=== PATIENT | female | born 1940 | race Caucasian/White ===

== ENCOUNTER 2021-09-02 05:55 | Day surgery (SDC) | payer MEDICARE ==
[~2021-09-02 05:55] MED LIST: DEXAMETHASONE SOD PHOSPHATE 4 MG/ML 1 ML VIAL IV ONE; HYDROmorphone 0.5 MG/0.5 ML SYRINGE IVP PRN; LACTATED RINGERS 1,000 ML IV SCH; LIDOCAINE 1% (10MG/ML) FOR IV START INTRADERMA PRN; MIDAZOLAM 2 MG/2 ML VIAL IV PRN; ONDANSETRON 4 MG/2 ML VIAL IVP ONE
--- NOTE | 2021-09-02 06:30 | P.GSHP ---
History of Present Illness H&P Date: 09/02/21 Chief Complaint: Left flank pain The patient is a 80-year-old white female with a history of urolithiasis. She presented last month with a three-day history of left flank pain. Computed tomography scan showed a 10 x 17 mm left renal pelvic calculus. There was also evidence of left hydroureter. A UTI was suspected, and she thus underwent left ureteral stent insertion. The urine culture grew greater than 100,000 alpha hemolytic strep, as well as a lesser number of coagulase-negative staphylococcus. She now comes for ureteroscopic removal of the calculus. She is currently taking Bactrim DS. - Constitutional Constitutional: Denies chills, Denies fever - Gastrointestinal Gastrointestinal: Denies nausea, Denies vomiting - Genitourinary (Female) Genitourinary: Reports flank pain, Reports kidney stones, Denies dysuria, Denies hematuria Past Medical History Past Medical History: Rheumatoid Arthritis (RA) Additional Past Medical History / Comment(s): repeated kidney stones. x 4-5. frequent urinary infections. History of Any Multi-Drug Resistant Organisms: None Reported Additional Past Surgical History / Comment(s): broke rt femur 2014 mark and plate placed. Past Anesthesia/Blood Transfusion Reactions: No Reported Reaction Smoking Status: Current some day smoker, Light tobacco smoker - Past Family History Father Additional Family Medical History / Comment(s): kidney stones Mother Family Medical History: Cancer Additional Family Medical History / Comment(s): leukemia Medications and Allergies Home Medications Medication Instructions Recorded Confirmed Type Sulfamethox-Tmp 800-160Mg [Bactrim 1 tab PO HS 08/31/21 08/31/21 History DS 800-160 mg] Allergies Allergy/AdvReac Type Severity Reaction Status Date / Time Penicillins Allergy Intermediate Rash/Hives Verified 08/31/21 13:57 Surgical - Exam - General well developed, well nourished, no distress - Neck no masses, trachea midline - Abdomen Abdomen: soft, non tender, no guarding, no rigid, no rebound - Genitourinary normal external genitalia - Psychiatric oriented to time, oriented to person, oriented to place, speech is normal, memory intact Results - Imaging Abdominal x-ray: image reviewed CT scan - abdomen: report reviewed, image reviewed Assessment and Plan (1) Calculus of kidney Current Visit: Yes Status: Acute Code(s): N20.0 - CALCULUS OF KIDNEY SNOMED Code(s): 52582384 Plan: Cystoscopy, left ureteral stent removal, left ureteroscopy with holmium laser lithotripsy and possible stone basketing. The procedure then reviewed in detail with the patient. She has been made aware of potential risks, which include anesthesia, bleeding, infection, and ureteral injury. Given the stone burden, she is aware of the possible need to replace the stent and perform a secondary procedure.
[2021-09-02] MEDS ORDERED: ROCURONIUM 10 MG/ML (5 ML VIAL) IV ONE (07:27)
[2021-09-02] MEDS ORDERED: PHENYLEPHRINE-0.9% NACL SYG 1,000 MCG/10 ML SYRINGE ONE (07:27)
[2021-09-02] MEDS ORDERED: LIDOCAINE 2% INJ 20 MG/ML (2 ML VIAL) ONE (07:27)
[2021-09-02] MEDS ORDERED: MIDAZOLAM 2 MG/2 ML VIAL ONE (07:27)
[2021-09-02] MEDS ORDERED: SUCCINYLCHOLINE CHLORIDE 100 MG/5 ML SYR IV ONE (07:27)
[2021-09-02] MEDS ORDERED: fentaNYL (PF) 50 MCG/ML 2 ML AMP ONE (07:27)
[2021-09-02] MEDS ORDERED: PROPOFOL 10 MG/ML 20 ML VIAL IV ONE (07:27)
--- NOTE | 2021-09-02 07:51 | XR ---
EXAMINATION TYPE: XR KUB DATE OF EXAM: 09/02/2021 COMPARISON: NONE HISTORY: Preop TECHNIQUE: One view abdominal series FINDINGS: The osseous structures are intact. The bowel gas pattern is nonspecific. Double-J ureteral stent not ed in the left. Large left renal calculus measuring 1.8 cm. Surgical clips in the gallbladder fossa with diffuse osteopenia, degenerative changes spine and bilat eral hip arthropathy. Postsurgical change right hip. IMPRESSION: 1. 1.8 cm left renal calculus.
[2021-09-02] MEDS ORDERED: LACTATED RINGERS 1,000 ML IV ONE (08:44)
--- NOTE | 2021-09-02 09:56 | FL ---
EXAMINATION TYPE: FL guidance operating room DATE OF EXAM: 09/02/2021 HISTORY: Fluoroscopy time 22 seconds of fluoroscopy provided. IMPRESSION: 1. Fluoroscopy time.
[2021-09-02 10:19] VITALS: TEMP 96.8
--- NOTE | 2021-09-02 10:23 | P.OP ---
Date of Procedure: 09/02/21 Preoperative Diagnosis: Left Renal Calculus Postoperative Diagnosis: Same Procedure(s) Performed: Cystoscopy, left ureteroscopy with Holmium laser lithotripsy and stone basketing, left ureteral stent change Anesthesia: ELIZABETHA Surgeon: Harinder Xavier Estimated Blood Loss (ml): 10 IV fluids (ml): 1,000 Pathology: other Condition: stable Disposition: PACU Indications for Procedure: The patient is a 80-year-old white female with a history of urolithiasis. She presented last month with a three-day history of left flank pain. CT scan showed a 10 x 17 mm left renal pelvic calculus. There was also evidence of left hydroureter. A UTI was suspected, and she thus underwent left ureteral stent insertion. The urine culture grew greater than 100,000 alpha hemolytic strep, as well as a lesser number of coagulase-negative staphylococcus. She now comes for ureteroscopic removal of the calculus. She is currently taking Bactrim DS. Operative Findings: Large left renal pelvic calculus, dusted with minimal small residual calculus f ragments. Description of Procedure: The patient was taken to the operating room and placed in the dorsolithotomy position, with legs supported in Raffaele stirrups. The external genitalia was prepped and draped sterilely. The 30 lens was used to introduce the 21-Citizen [place] Haas cystoscopic sheath through the urethra and into the bladder under direct vision. The bladder was examined in its entirety. Both ureteral orifices were normal anatomic location and configuration, and clear urine effluxed from both. No tumors or foreign bodies were seen. The distal end of the left ureteral stent was grasped with grasping forceps and removed along with the cystoscope. A 0.038 inch Glidewire was passed through the stent and up to the left renal pelvis. An 11/13-Citizen [place] ureteral access catheter was passed over the wire, up to the proximal ureter. The Haas Onehub flexible ureteroscope was then passed through the ureteral access catheter sheath, up to the stone. The 272 micron Holmium laser probe was passed through the ureteroscope, and lithotripsy was performed utilizing a dusting mode. This was done until the calculus was completely fragmented. However, several pieces broke away and were lasered into smaller fragments. Several were removed using a 1.9-[place]izen [place] nitinol basket. There appeared to be no residual calculus fragments exceeding the size of the laser fiber tip. However, visualization became impaired and there was an apparent fragment seen on fluoroscopy which could not be identified. Therefore, after removing the ureteroscope, the cystoscope was replaced into the bladder. The Glidewire was passed up to the left renal pelvis, and the ureteral stent was replaced. The bladder was emptied and the cystoscope removed. The patient tolerated the procedure well and was taken to the recovery room in stable condition. It should be noted that when ureteroscopy was performed there was no evidence of ureteral trauma, and there was likewise no evidence of trauma to the left renal pelvis. [facility] [place] Report: Procedure Acuity: Elective Stone Size and Location: 10 x 17 mm, left renal pelvis Ureteral Dilation: No Ureteral Access Sheath Used: Yes Stone Sent for Analysis: Yes All Stones/Fragments Were Removed with a Basket: No Complications: No Preoperative Antibiotics Given: Yes Stent Placed: Yes If Stent Placed, Was String Left Attached: No If Stent Placed, When is it to be Removed: 2 weeks Discharge Medications: None
[2021-09-02 11:00] VITALS: RESP 20
[2021-09-02 11:16] VITALS: BP 133/67; PULSE 66
== END 2021-09-02 11:18 | disposition home or self-care (01) ==
LOC: OR 05:55
PROVIDERS: ATTEND Urology
DX: N20.0 Calculus of kidney (principal); M06.9 Rheumatoid arthritis, unspecified; F17.200 Nicotine dependence, unspecified, uncomplicated; Z87.440 Personal history of urinary (tract) infections; Z88.0 Allergy status to penicillin; Z80.6 Family history of leukemia
CPT/HCPCS: 82365; 74018; 52356; C1769; C1758; J2250; J0690; J2405; J3010; J2370; J0330; J2704; J2001

== ENCOUNTER → 2021-09-09 | Outpatient (CLI) | payer MEDICARE ==
[2021-09-09 16:15] LABS: Basophils # (A) 0.04 X 10*3/uL (0.00-0.10); Basophils % (A) 0.6 %; Eosinophils % (A) 1.4 %; HCT 44.2 % (37.2-46.3); HGB 13.8 g/dL (12.0-15.0); Immature Grans, Automated 0.4 %; Lymphocytes # (A) 1.47 X 10*3/uL (0.90-5.00); Lymphocytes % (A) 20.5 %; MCH 26.8 pg (27.0-32.0); MCHC 31.2 g/dL (32.0-37.0); MCV 85.8 fL (80.0-97.0); Mean Platelet Volume 10.7 fL (9.5-12.2); Monocytes # (A) 0.44 X 10*3/uL (0.20-1.00); Monocytes % (A) 6.1 %; NRBC Per 100 WBC 0 /100 WBCS (0.0-0.0); Neutrophils # (A) 5.08 X 10*3/uL (1.80-7.70); Platelet Count 360 X 10*3/uL (140-440); RBC 5.15 X 10*6/uL (4.10-5.20); RDW 14.1 % (11.5-14.5); WBC 7.16 X 10*3/uL (4.50-10.00)
[2021-09-09 17:01] LABS: African American GFR (CKD) 96.4 (60.0-200.0); Albumin 3.8 g/dL (3.8-4.9); Albumin/Globulin Ratio 1.4 (1.60-3.17); Anion Gap 13.6 mmol/L (10.00-18.00); BUN/Creat Ratio 17.06 Ratio (12.00-20.00); Blood Urea Nitrogen 11.6 mg/dL (9.0-27.0); Carbon Dioxide 23.1 mmol/L (20.0-27.5); Globulin 2.7 g/dL (1.6-3.3); Non-African American GFR(CKD) 83.2 (60.0-200.0); Potassium 4.8 mmol/L (3.5-5.5); Total Bilirubin 0.4 mg/dL (0.30-1.20); Total Protein 6.6 g/dL (6.2-8.2)
[2021-09-09 19:47] LABS: Appearance,Urine Turbid (Clear); Bacteria,Urine None Seen /HPF (None Seen); Bilirubin,Urine Negative (Negative); Blood,Urine Moderate (Negative); Color,Urine Yellow (Yellow); Ketones,Urine Negative (Negative); Nitrite,Urine Negative (Negative); Specific Gravity,Urine 1.012 (1.001-1.030); Urobilinogen,Urine 0.2 (0.2,1.0)
== END | disposition home or self-care (01) ==
LOC: LABPAT 08:32
PROVIDERS: ATTEND Urology
DX: Z01.812 Encounter for preprocedural laboratory examination (principal); N20.0 Calculus of kidney
CPT/HCPCS: 80053; 81001; 85025; 87086

== ENCOUNTER 2021-09-16 08:16 | Day surgery (SDC) | payer MEDICARE ==
--- NOTE | 2021-09-14 05:31 | P.GSHP ---
History of Present Illness H&P Date: 09/14/21 The patient is a 80-year-old white female with a history of urolithiasis. She presented with left flank pain. CT scan showed a 10 x 17 mm left renal pelvic calculus. There was also evidence of left hydroureter. A UTI was suspected, and she thus underwent left ureteral stent insertion. The urine culture grew greater than 100,000 alpha hemolytic strep, as well as a lesser number of coagulase-negative staphylococcus. On September 02, she underwent left ureteroscopy with Holmium laser lithotripsy. The calculus appeared to be completely dusted, and the ureteral stent was changed. She now comes for repeat ureteroscopy with removal of any residual calculus fragments. - Constitutional Constitutional: Denies chills, Denies fever - Gastrointestinal Gastrointestinal: Denies nausea, Denies vomiting - Genitourinary (Female) Genitourinary: Reports as per HPI Past Medical History Additional Past Surgical History / Comment(s): 09/02/21 - left ureteroscopy with holmium laser lithotripsy, left ureteral stent change Medications and Allergies Home Medications Medication Instructions Recorded Confirmed Type Sulfamethox-Tmp 800-160Mg [Bactrim 1 tab PO HS 08/31/21 08/31/21 History DS 800-160 mg] Allergies Allergy/AdvReac Type Severity Reaction Status Date / Time Penicillins Allergy Intermediate Rash/Hives Verified 09/02/21 06:44 Surgical - Exam - General well developed, well nourished, no distress - Respiratory normal respiratory effort - Abdomen Abdomen: soft, non tender, no guarding, no rigid, no rebound - Psychiatric oriented to time, oriented to person, oriented to place, speech is normal, memory intact Results - Imaging CT scan - abdomen: report reviewed, image reviewed Assessment and Plan Plan: Cystoscopy, left ureteral stent removal, left ureteroscopy with Holmium laser lithotripsy and possible stone basketing to remove residual calculus fragments. She is aware of potential risks, which include anesthesia, bleeding, infection, and ureteral injury.
[2021-09-14 08:45] VITALS: BMI 25.1
--- NOTE | 2021-09-16 09:15 | XR ---
EXAMINATION TYPE: XR KUB DATE OF EXAM: 09/16/2021 COMPARISON: 09/02/2021 HISTORY: Left renal calculi TECHNIQUE: One view abdominal series FINDINGS: Left-sided double-J ureteral stent noted. There is residual calcification overlying the lower pole me asuring approximately 6 x 2 mm. Postsurgical change right upper quadrant. There is a calcific density measuring 6 mm overlying the ri ght 12th rib. Hypertrophic degenerative changes spine. Arthropathy of the left hip and postsurgical c hange right. IMPRESSION: 1. There is a calcification overlying the lower pole left kidney measuring 6 x 2 mm. 2. Nonspecific right upper quadrant calcification
[2021-09-16 09:30] VITALS: RESP 16
[2021-09-16] MEDS ORDERED: SUCCINYLCHOLINE CHLORIDE 100 MG/5 ML SYR IV ONE (10:52)
[2021-09-16] MEDS ORDERED: LIDOCAINE 2% INJ 20 MG/ML (2 ML VIAL) ONE (10:52)
[2021-09-16] MEDS ORDERED: ePHEDrine 50 MG/ML 1 ML VIAL ONE (10:52)
[2021-09-16] MEDS ORDERED: NEOSTIGMINE 1 MG/ML 10 ML VIAL ONE (10:52)
[2021-09-16] MEDS ORDERED: GLYCOPYRROLATE 0.2 MG/ML 2 ML VIAL ONE (10:52)
[2021-09-16] MEDS ORDERED: PROPOFOL 10 MG/ML 20 ML VIAL IV ONE (10:52)
[2021-09-16] MEDS ORDERED: fentaNYL (PF) 50 MCG/ML 2 ML AMP ONE (10:52)
--- NOTE | 2021-09-16 12:25 | FL ---
EXAMINATION TYPE: FL guidance operating room DATE OF EXAM: 09/16/2021 HISTORY: Fluoroscopy time 5 minutes of fluoroscopy provided. IMPRESSION: 1. Fluoroscopy time.
[2021-09-16 12:28] VITALS: TEMP 97.8
--- NOTE | 2021-09-16 12:38 | P.OP ---
Date of Procedure: 09/16/21 Preoperative Diagnosis: Left Renal Calculus Postoperative Diagnosis: Same Procedure(s) Performed: Cystoscopy, left ureteroscopy with stone basketing, left ureteral stent change Anesthesia: GETA Surgeon: Harinder Xavier Estimated Blood Loss (ml): 10 IV fluids (ml): 700 Pathology: none sent Condition: stable Disposition: PACU Indications for Procedure: The patient is a 80-year-old white female with a history of urolithiasis. She presented with left flank pain. CT scan showed a 10 x 17 mm left renal pelvic calculus. There was also evidence of left hydroureter. A UTI was suspected, and she thus underwent left ureteral stent insertion. The urine culture grew greater than 100,000 alpha hemolytic strep, as well as a lesser number of coagulase-negative staphylococcus. On September 02, she underwent left ureteroscopy with Holmium laser lithotripsy. The calculus appeared to be completely dusted, and the ureteral stent was changed. She now comes for repeat ureteroscopy with removal of any residual calculus fragments. Operative Findings: Multiple small residual calculus fragments within the left kidney, predominantly within a lower pole calyx. Description of Procedure: The patient was taken to the operating room and placed in the dorsolithotomy position, with legs supported in Raffaele stirrups. The external genitalia was prepped and draped sterilely. The 30 lens was used to introduce the 21-[place] Haas cystoscopic sheath through the urethra and into the bladder under direct vision. The bladder was examined in its entirety, and no abnormalities were seen. Both ureteral orifices were normal anatomic location and configuration, and clear urine effluxed from both. No tumors or foreign bodies were seen. The distal end of the left ureteral stent was grasped with grasping forceps and removed along with the cystoscope. The Haas Cobra flexible ureteroscope was then passed into the bladder. The left ureteral orifice was cannulated, and the ureteroscope was slowly advanced under direct vision up to the left renal pelvis. No calculus fragments were seen within the ureter. However, multiple fragments were seen within the kidney, predominantly within a lower pole calyx. Therefore, a 0.038 inch Glidewire was passed through the ureteroscope, which was withdrawn. An 11/13-[place] ureteral access catheter sheath was passed over the wire, up to the proximal ureter. The ureteroscope was then passed through the ureteral access catheter sheath and up to the renal pelvis. A 1.9-[place] nitinol basket was used to remove the calculus fragments. All calculus fragments large enough to basket were successfully removed. There was no evidence of ureteral trauma. The Glidewire was passed through the ureteral access catheter sheath, which was removed, and the Glidewire was backloaded into the cystoscope. The cystoscope was advanced into the bladder, and a 24 cm, 6- [place] double-J ureteral stent was placed over the wire. Proper stent positioning was verified fluoroscopically and endoscopically. The bladder was emptied and the cystoscope removed. The patient tolerated the procedure well and was taken to the recovery room in stable condition. [facility] [place] Report: Procedure Acuity: Elective Stone Size and Location: Residual calculus fragments up to 3 mm in diameter. Ureteral Dilation: No Ureteral Access Sheath Used: Yes Stone Sent for Analysis: No All Stones/Fragments Were Removed with a Basket: Yes Complications: No Preoperative Antibiotics Given: Yes Stent Placed: Yes If Stent Placed, Was String Left Attached: No If Stent Placed, When is it to be Removed: 2 weeks Discharge Medications: None
[2021-09-16 13:38] VITALS: BP 133/77; PULSE 61
== END 2021-09-16 13:37 | disposition home or self-care (01) ==
LOC: OR 08:16
PROVIDERS: ATTEND Urology
DX: N20.0 Calculus of kidney (principal); Z96.0 Presence of urogenital implants; Z88.0 Allergy status to penicillin; M19.90 Unspecified osteoarthritis, unspecified site; F17.210 Nicotine dependence, cigarettes, uncomplicated; Z80.6 Family history of leukemia; Z84.1 Family history of disorders of kidney and ureter
CPT/HCPCS: 74018; 52352; 52332; C2625; C1769; J1100; J2710; J0690; J2405; J3010; J0330; J2704; J2001